=== PATIENT | female | born 1980 | race Caucasian/White ===

== ENCOUNTER 2017-10-02 14:28 | Outpatient (CLI) | payer OTHER, SELFPAY ==
[2017-10-02 15:29] VITALS: BMI 25.8
== END 2017-10-02 16:10 | disposition home or self-care (01) ==
LOC: UTC.OUT 14:33
PROVIDERS: PCP Family Medicine; Visit Provider Nurse Practitioner Family
DX: Z02.1 Encounter for pre-employment examination (principal)
CPT/HCPCS: 86580; 93005